=== PATIENT | female | born 1975 | race Caucasian/White ===

== ENCOUNTER → 2016-12-14 | Outpatient (CLI) | payer BC ==
[2016-12-14 12:17] LABS: CH 32.3; CHCM 32.3; HCT 45.9 % (34.0-46.0); HDW 2.08; HGB 14.7 gm/dL (11.4-16.0); MCH 32.2 pg (25.0-35.0); MCHC 31.9 g/dL (31.0-37.0); MCV 100.8 fL (80.0-100.0); Mean Platelet Volume 8.5; RBC 4.56 m/uL (3.80-5.40); RDW 12.8 % (11.5-15.5); WBC 13.9 k/uL (3.8-10.6)
== END ==
LOC: LABWHC1 12:03
PROVIDERS: ATTEND Internal Medicine
DX: D72.829 Elevated white blood cell count, unspecified (principal)
CPT/HCPCS: 36415; 85027

== ENCOUNTER → 2018-06-29 | Outpatient (CLI) | payer BC ==
--- NOTE | 2018-06-29 12:41 | MM ---
Reason for exam: screening (asymptomatic). Baseline mammogram. History: Patient is nulliparous. Family history of breast cancer in maternal grandmother. Took hormonal contraceptives beginning at age 23. Physical Findings: Nurse Summary: 3cm nodule in the right breast at 10 o'clock (nurse rudolph). MG 3D Screening Mammo W/Cad Bilateral CC and MLO view(s) were taken. The breast tissue is extremely dense which could obscure a lesion on mammography. There is no discrete abnormality including area of concern. Ultrasound recommended. These results were verbally communicated with the patient and result sheet given to the patient on 06/29/18. ASSESSMENT: Incomplete: need additional imaging evaluation, BI-RAD 0 RECOMMENDATION: Ultrasound of the right breast. Manage patient on a clinical basis. [facility] will attempt to contact patient to return for ultrasound.
--- NOTE | 2018-06-29 12:46 | USB ---
Reason for exam: additional evaluation requested from abnormal screening. History: Patient is nulliparous. Family history of breast cancer in maternal grandmother. Took hormonal contraceptives beginning at age 23. Physical Findings: Breast exam preformed at baseline screening. US Breast Workup Limited RT Right limited breast ultrasound including focal area of concern, retroareolar and axilla demonstrates a 1.5 x 0.8 x 1.3cm cystic lesion at 8 o'clock. This is the largest cyst. Multiple small cysts are present. Scanned 6-9 o'clock. Dense tissue is noted at the 9 o'clock palpable site. These results were verbally communicated with the patient and result sheet given to the patient on 06/29/18. ASSESSMENT: Benign, BI-RAD 2 RECOMMENDATION: Return to routine screening mammogram schedule for both breasts. Manage on a clinical basis with regard to any suspicious palpable abnormalites.
== END | disposition home or self-care (01) ==
LOC: RADMAMWWP 10:26
PROVIDERS: ATTEND Internal Medicine
DX: Z12.31 Encounter for screening mammogram for malignant neoplasm of breast (principal); R92.8 Other abnormal and inconclusive findings on diagnostic imaging of breast
CPT/HCPCS: 77063; 77067

== ENCOUNTER 2019-02-19 12:34 | Emergency (ER) | payer BC, OTHER ==
[2019-02-19 12:40] VITALS: BP 125/69; PULSE 101; RESP 18; TEMP 97.9
[2019-02-19] MEDS ORDERED: KETOROLAC 60 MG/2 ML VIAL IM STA (12:59)
[2019-02-19] MEDS ORDERED: CYCLOBENZAPRINE 10MG STARTER 3 TAB BTL PO STA (13:05)
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
--- NOTE | 2019-02-19 13:28 | XR ---
EXAMINATION TYPE: XR cervical spine limited , 3 VIEWS DATE OF EXAM ORDERED: 02/19/2019 HISTORY: Pain. COMPARISON: None. FINDINGS: Vertebral body height and alignment are maintained. Atlantoaxial relationships are normal. Prevertebral soft tissues are normal. No fractures are seen. IMPRESSION: NORMAL CERVICAL SPINE.
--- NOTE | 2019-02-19 13:29 | XR ---
EXAMINATION TYPE: XR lumbar spine 2 or 3V , 3 VIEWS DATE OF EXAM ORDERED: 02/19/2019 HISTORY: Pain. COMPARISON: None. FINDINGS: Vertebral body height and alignment are maintained. There is no spondylolysis or spondylol isthesis. No fractures are seen. This spaces are well maintained. The pedicles are intact. IMPRESSION: NORMAL LUMBAR SPINE.
== END 2019-02-19 13:39 | disposition home or self-care (01) ==
LOC: EC 12:34
DX: S16.1XXA Strain of muscle, fascia and tendon at neck level, initial encounter (principal); M54.5 Low back pain; M54.6 Pain in thoracic spine; F17.200 Nicotine dependence, unspecified, uncomplicated; Z88.0 Allergy status to penicillin; V49.49XA Driver injured in collision with other motor vehicles in traffic accident, initial encounter; Y92.89 Other specified places as the place of occurrence of the external cause
CPT/HCPCS: 72040; 72100; 99284; 96372; J1885

== ENCOUNTER → 2023-06-30 | Outpatient (CLI) | payer BC ==
--- NOTE | 2023-06-30 12:24 | XR ---
EXAMINATION TYPE: XR chest 2V DATE OF EXAM: 06/30/2023 COMPARISON: NONE TECHNIQUE: PA and lateral views submitted. HISTORY: Leukocytosis FINDINGS: The lungs are clear and there is no pneumothorax, pleural effusion, or focal pneumonia. Heart size normal and no overt failure. Osseous structures intact. Hyperinflation suggests COPD. IMPRESSION: 1. No acute process.
== END | disposition home or self-care (01) ==
LOC: RADXRMAIN 11:33
PROVIDERS: ATTEND Internal Medicine Hematology & Oncology
DX: D75.9 Disease of blood and blood-forming organs, unspecified (principal); D72.829 Elevated white blood cell count, unspecified; D64.9 Anemia, unspecified
CPT/HCPCS: 71046